=== PATIENT | female | born 2000 | race Caucasian/White ===

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

== ENCOUNTER 2020-11-13 16:12 | Outpatient (REF) | payer BC, SELFPAY ==
[2020-11-15 15:35] LABS: Chlamydia Result Negative (Negative); GC Result Negative (Negative)
== END 2020-11-13 16:13 | disposition home or self-care (01) ==
LOC: LBN 16:12
PROVIDERS: PCP Nurse Practitioner Family; Visit Provider Nurse Practitioner Family
DX: Z11.3 Encounter for screening for infections with a predominantly sexual mode of transmission (principal)
CPT/HCPCS: 87491; 87591

== ENCOUNTER 2021-06-12 18:46 | Outpatient (REF) | payer BC, SELFPAY ==
[2021-06-14 12:11] LABS: COVID-19 RT-PCR UVMMC Result Negative (Negative)
== END 2021-06-12 18:47 | disposition home or self-care (01) ==
LOC: LBN 18:46
PROVIDERS: PCP Nurse Practitioner Family; Visit Provider Physician Assistant Medical
DX: Z20.822 Contact with and (suspected) exposure to COVID-19 (principal)
CPT/HCPCS: U0003

== ENCOUNTER 2022-03-05 18:06 | Outpatient (REF) | payer BC, SELFPAY ==
[2022-03-07 15:15] LABS: Chlamydia Result Negative (Negative); GC Result Negative (Negative)
== END 2022-03-05 18:07 | disposition home or self-care (01) ==
LOC: LBN 18:06
PROVIDERS: PCP Nurse Practitioner Family; Visit Provider Nurse Practitioner Women's Health
DX: Z11.3 Encounter for screening for infections with a predominantly sexual mode of transmission (principal)
CPT/HCPCS: 87491; 87591

== ENCOUNTER 2022-07-08 17:11 | Outpatient (REF) | payer BC, SELFPAY | END 2022-07-08 17:12 | disposition home or self-care (01) | LOC: LBN 17:11 | PROVIDERS: PCP Nurse Practitioner Family; Visit Provider Nurse Practitioner Family | DX: J02.9 Acute pharyngitis, unspecified (principal) | CPT/HCPCS: 87081 ==

== ENCOUNTER 2023-10-19 18:19 | Outpatient (REF) | payer BC, SELFPAY ==
[2023-10-20 18:45] LABS: Hepatitis C Ab w Rflx HCV PCR Negative (Negative)
[2023-10-20 19:02] LABS: HIV-1/2 Ag & Ab Screen Negative (Negative)
[2023-10-21 11:59] LABS: Syphilis Serology (RPR) Negative (Negative)
[2023-10-21 13:20] LABS: Chlamydia Result Negative (Negative); GC Result Negative (Negative)
== END 2023-10-19 18:20 | disposition home or self-care (01) ==
LOC: LBN 18:19
PROVIDERS: PCP Nurse Practitioner Family; Visit Provider Nurse Practitioner Family
DX: Z11.3 Encounter for screening for infections with a predominantly sexual mode of transmission (principal); Z11.4 Encounter for screening for human immunodeficiency virus [HIV]; Z11.59 Encounter for screening for other viral diseases
CPT/HCPCS: 86803; 87389; 87491; 87591; 86592

== ENCOUNTER 2023-11-21 13:29 | Outpatient (REF) | payer BC, SELFPAY ==
[2023-11-20 21:57] LABS: Bilirubin Negative (Negative); Blood Moderate (Negative); Clarity Cloudy (Clear); Glucose Negative (Negative); Ketones Negative (Negative); Leukocyte Esterase Trace (Negative); Nitrite Negative (Negative); Specific Gravity 1.025 (1.005-1.025); Urobilinogen 0.2 mg/dL (Up to 0.2)
[2023-11-20 22:22] LABS: Bacteria Negative HPF (Negative); C & S Indicated? Yes; Crystals Few Amorphous HPF (Negative); Epithelial Cells Few HPF (Negative); Mucus Moderate (Negative); Other Cells Rare Transitional (Negative); WBC 20-50 HPF (0-5)
== END 2023-11-21 13:30 | disposition home or self-care (01) ==
LOC: LBN 13:29
PROVIDERS: PCP Nurse Practitioner Family; Visit Provider Nurse Practitioner Family
DX: R30.0 Dysuria (principal)
CPT/HCPCS: 87077; 81003; 81015; 87086; 87186

== ENCOUNTER 2024-01-27 16:10 | Outpatient (REF) | payer BC, SELFPAY ==
--- NOTE | 2024-01-27 15:20 | PAPFT_PTH ---
PATIENT: Maida Lamb LOC: [facility] U#:[id number] AGE/SX: 23/F ROOM: RE01/27/[address]: Jazmin Dsouza : 2000 BED: DIS: 01/27/2024 SPEC #: [id number] RECD: 01/27/24 17:53 STATUS: BRENDA REQ #: [id number] CLARI: 01/27/24 15:[address]: Jazmin Dsouza DEPT: [facility] Cytology RECD BY: Rafaela Ortiz ENTERED: 01/27/24 17:54 SP TYPE: PAPFT BRYAN DR: Alexandru Venegas, JIMI Tissues: 1 - CX/ENDOCX FOR PAP SMEARS Procedures: PAP THIN PREP/[facility] Screening Comments: [id number] (CHLAMYDIA/GC)
[2024-01-28 14:48] LABS: Chlamydia Result Negative (Negative); GC Result Negative (Negative)
== END 2024-01-27 16:11 | disposition home or self-care (01) ==
LOC: LBN 16:10
PROVIDERS: PCP Nurse Practitioner Family; Visit Provider Advanced Practice Midwife
DX: Z11.3 Encounter for screening for infections with a predominantly sexual mode of transmission (principal); Z12.4 Encounter for screening for malignant neoplasm of cervix
CPT/HCPCS: 87491; 87591; 88142

== ENCOUNTER → 2024-02-09 01:17 | Outpatient (CLI) | payer BC, SELFPAY ==
--- NOTE | 2024-02-09 07:45 | DI.US_ITS ---
Exam(s) US PELVIS TRANSVAGINAL EXAM: US PELVIS TRANSVAGINAL CLINICAL HISTORY: pain after IUD insertion, IUD SURVEILLANCE, Z30.431 TECHNIQUE: Ultrasound of the pelvis was performed both transabdominal and transvaginal. COMPARISON: CR ABDOMEN FLAT PLATE from 09/04/2011 FINDINGS: UTERUS: Uterus is nongravid and anteverted Measures 7 cm length x 3.5 cm AP x 5.8 cm wide. There are no uterine fibroids. Endometrial thickness measures 9 mm. There is an IUD in the endometrial canal. The right arm of the IUD is in satisfactory position. The left arm of the IUD is bent proximally with slight extension from the endometrial cavity into the ad jacent myometrium at approximately the mid uterus level. CERVIX: There are no obvious nabothian cysts. RIGHT OVARY: Measures 2.9 x 2.5 x 1.7 cm No significant cysts nor masses evident in the right ovary. LEFT OVARY: Measures 4 x 3.7 x 2.1 cm Contains a simple cyst measuring 2.2 x 2.1 x 3.7 cm. CUL-DE-SAC: No free fluid evident. IMPRESSION: 1. There is an IUD in the endometrial canal. However, with 3D imaging it is evident that the left ar m of the IUD is bent proximally and extending from the endometrial canal into the adjacent myometrium , this at approximately the mid endometrial canal level. The right arm of the IUD is in satisfactory position 2. There is a 2.2 x 2.1 x 3.7 cm simple cyst in the left ovary. Probably dominant follicular cyst. There is no free fluid. DATA REPOSITORY:
== END ==
PROVIDERS: PCP Nurse Practitioner Family; Visit Provider Advanced Practice Midwife
DX: R10.2 Pelvic and perineal pain (principal); N83.292 Other ovarian cyst, left side; Z30.431 Encounter for routine checking of intrauterine contraceptive device; R82.998 Other abnormal findings in urine; Z87.440 Personal history of urinary (tract) infections
CPT/HCPCS: 76830; 76856; 87086